=== PATIENT | female | born 1965 | race Hispanic/Latino ===

== ENCOUNTER 2021-02-11 12:08 | Inpatient (IN) | payer BC ==
[~2021-02-11] VITALS: Ht 162.6 cm; Wt 72.7 kg
[2021-02-11 13:12] LABS: BASOPHILS % (AUTO) 0.4 % (0.0-5.0); EOSINOPHILS % (AUTO) 1.8 % (0.0-8.0); HEMATOCRIT 29.8 % (36-48); LYMPHOCYTES % (AUTO) 20.6 % (21.0-51.0); MEAN CORPUSCULAR HEMOGLOBIN 29.7 pg (27.0-33.0); MEAN CORPUSCULAR HGB CONC 31.5 g/dL (32.0-36.0); MONOCYTES % (AUTO) 3.3 % (3.0-13.0); NEUTROPHILS % (AUTO) 73.4 % (40.0-77.0); PLATELET COUNT (AUTO) 351 K/uL (130-400); RED BLOOD CELL COUNT(AUTO) 3.17 MIL/uL (4.00-5.50); RED CELL DISTRIBUTION WIDTH 16.2 % (11.0-15.5); WHITE BLOOD COUNT (AUTO) 10.5 K/uL (4.8-10.8)
[2021-02-11 13:19] LABS: CREATININE 1.6 mg/dL (0.5-1.5); POTASSIUM 4.5 mmol/L (3.5-5.1)
[2021-02-11 13:37] LABS: B-TYPE NATRIURETIC PEPTIDE 1010 pg/mL (0-100)
[2021-02-11] MEDS ORDERED: LACTULOSE 20 GM/30 ML UDCUP PO PRN (14:00)
[2021-02-11] MEDS ORDERED: ACETAMINOPHEN 325 MG TAB PO PRN ×2 (14:00)
[2021-02-11] MEDS ORDERED: ONDANSETRON 4MG INJ IV PRN (14:00)
[2021-02-11] MEDS ORDERED: FUROSEMIDE 40MG VIAL IVP SCH (14:00)
[2021-02-11] MEDS: NITROGLYCERIN 1GM OINT 1 INCH/1GM TD SCH ×2 (14:00→22:00)
[2021-02-11 15:57] LABS: MAGNESIUM 2.1 mg/dL (1.80-2.40); THYROID STIMULATING HORMONE 2.35 uIU/mL (0.36-3.74); TROPONIN I 0.12 ng/mL (0.00-0.06)
[2021-02-11] MEDS ORDERED: BUMETANIDE 2.5MG/10ML VIAL 40 ML IV SCH (18:15)
[2021-02-11] MEDS ORDERED: PHARMACY COMMUNICATION MISC SCH (18:30)
[2021-02-11] MEDS ORDERED: BUMETANIDE 0.25 MG/ML 80 ML IV SCH (18:30)
[2021-02-11] MEDS: INSULIN HUMULIN R 100 UNIT/ML 3ML SQ SCH (21:00)
[2021-02-11] MEDS: FAMOTIDINE 20MG TAB PO SCH (21:00)
[2021-02-11 22:16] LABS: TROPONIN I 0.12 ng/mL (0.00-0.06)
[2021-02-11] MEDS ORDERED: FAMOTIDINE 20MG TAB ONE (22:19)
[2021-02-12] VITALS (7 sets, daily range): BP systolic 117–140; BP diastolic 57–72
[2021-02-12 05:00] LABS: HEMATOCRIT 26.1 % (36-48); MEAN CORPUSCULAR HEMOGLOBIN 29.6 pg (27.0-33.0); MEAN CORPUSCULAR HGB CONC 31.4 g/dL (32.0-36.0); MEAN CORPUSCULAR VOLUME 94.2 fL (79-99); RED BLOOD CELL COUNT(AUTO) 2.77 MIL/uL (4.00-5.50); RED CELL DISTRIBUTION WIDTH 16.4 % (11.0-15.5); RETICULOCYTE % (AUTO) 6.41 % (0.42-2.23); WHITE BLOOD COUNT (AUTO) 8.2 K/uL (4.8-10.8)
[2021-02-12 05:07] LABS: HEMOGLOBIN A1C 6.2 % (4.0-6.0)
[2021-02-12 05:26] LABS: CREATININE 1.5 mg/dL (0.5-1.5); POTASSIUM 4.2 mmol/L (3.5-5.1); THYROID STIMULATING HORMONE 2.31 uIU/mL (0.36-3.74); TROPONIN I 0.13 ng/mL (0.00-0.06)
[2021-02-12] MEDS: INSULIN HUMULIN R 100 UNIT/ML 3ML SQ SCH ×4 (06:21→20:06)
[2021-02-12] MEDS: NITROGLYCERIN 1GM OINT 1 INCH/1GM TD SCH ×3 (06:36→20:08)
[2021-02-12] MEDS ORDERED: METOPROLOL SUCCINATE 50 MG TAB.SR.24H PO SCH (09:00)
[2021-02-12] MEDS: LOSARTAN 50 MG TABLET PO SCH (09:57)
[2021-02-12] MEDS: ENOXAPARIN SODIUM 40 MG/0.4 ML SYRINGE SQ SCH (09:58)
[2021-02-12] MEDS: ASPIRIN 81MG CHEW TAB PO SCH (14:31)
[2021-02-12] MEDS: ATORVASTATIN 20 MG TABLET PO SCH (14:31)
[2021-02-12] MEDS: BUMETANIDE 1MG/4ML VIAL IVP SCH ×2 (14:32→20:07)
[2021-02-12] MEDS: FAMOTIDINE 20MG TAB PO SCH (20:08)
[2021-02-13 04:00] VITALS: BP 116/57
[2021-02-13] MEDS: INSULIN HUMULIN R 100 UNIT/ML 3ML SQ SCH ×4 (05:18→22:38)
[2021-02-13 05:32] LABS: BASOPHILS % (AUTO) 0.1 % (0.0-5.0); EOSINOPHILS % (AUTO) 3.2 % (0.0-8.0); HEMATOCRIT 26.3 % (36-48); LYMPHOCYTES % (AUTO) 21.4 % (21.0-51.0); MEAN CORPUSCULAR HEMOGLOBIN 28.9 pg (27.0-33.0); MEAN CORPUSCULAR HGB CONC 30.8 g/dL (32.0-36.0); MEAN CORPUSCULAR VOLUME 93.9 fL (79-99); MONOCYTES % (AUTO) 6.1 % (3.0-13.0); NEUTROPHILS % (AUTO) 68.8 % (40.0-77.0); PLATELET COUNT (AUTO) 305 K/uL (130-400); RED CELL DISTRIBUTION WIDTH 15.9 % (11.0-15.5); WHITE BLOOD COUNT (AUTO) 8.1 K/uL (4.8-10.8)
[2021-02-13] MEDS: BUMETANIDE 1MG/4ML VIAL IVP SCH (05:39)
[2021-02-13] MEDS: NITROGLYCERIN 1GM OINT 1 INCH/1GM TD SCH (05:43)
[2021-02-13 05:44] LABS: B-TYPE NATRIURETIC PEPTIDE 631 pg/mL (0-100)
[2021-02-13 05:45] LABS: CREATININE 1.7 mg/dL (0.5-1.5); POTASSIUM 3.9 mmol/L (3.5-5.1)
[2021-02-13 08:00] VITALS: BP 111/63
[2021-02-13] MEDS: LOSARTAN 50 MG TABLET PO SCH (10:41)
[2021-02-13] MEDS: ATORVASTATIN 20 MG TABLET PO SCH (10:41)
[2021-02-13] MEDS: BUMETANIDE 1 MG TAB PO SCH ×2 (10:41→22:35)
[2021-02-13] MEDS: ENOXAPARIN SODIUM 40 MG/0.4 ML SYRINGE SQ SCH (10:42)
[2021-02-13] MEDS: ASPIRIN 81MG CHEW TAB PO SCH (10:42)
[2021-02-13] MEDS: ISOSORBIDE MONO 30MG SR TAB PO SCH (10:42)
[2021-02-13] MEDS ORDERED: PHARMACY COMMUNICATION MISC SCH (11:15)
[2021-02-13 12:00] VITALS: BP 116/55
[2021-02-13] MEDS ORDERED: COMPOUND IV MISC 1 EACH IVSOLN MISC PRN (12:45)
[2021-02-13] MEDS: IRON SUCROSE COMPLEX 300 MG in 0.9% NACL 250ML 250 ML IVP SCH (14:00)
[2021-02-13 16:00] VITALS: BP 128/63
[2021-02-13 20:16] VITALS: BP 116/53
[2021-02-13] MEDS: METOPROLOL SUCCINATE 50 MG TAB.SR.24H PO SCH (22:35)
[2021-02-13] MEDS: FAMOTIDINE 20MG TAB PO SCH (22:35)
[2021-02-14] VITALS (7 sets, daily range): BP systolic 126–145; BP diastolic 56–74
[2021-02-14 05:12] LABS: BASOPHILS % (AUTO) 0.3 % (0.0-5.0); EOSINOPHILS % (AUTO) 4.5 % (0.0-8.0); HEMATOCRIT 27.2 % (36-48); LYMPHOCYTES % (AUTO) 22.1 % (21.0-51.0); MEAN CORPUSCULAR HEMOGLOBIN 28.7 pg (27.0-33.0); MEAN CORPUSCULAR HGB CONC 30.5 g/dL (32.0-36.0); MEAN CORPUSCULAR VOLUME 94.1 fL (79-99); MONOCYTES % (AUTO) 7.1 % (3.0-13.0); NEUTROPHILS % (AUTO) 65.6 % (40.0-77.0); PLATELET COUNT (AUTO) 292 K/uL (130-400); RED BLOOD CELL COUNT(AUTO) 2.89 MIL/uL (4.00-5.50); RED CELL DISTRIBUTION WIDTH 15.6 % (11.0-15.5); WHITE BLOOD COUNT (AUTO) 7.1 K/uL (4.8-10.8)
[2021-02-14 05:26] LABS: CREATININE 1.7 mg/dL (0.5-1.5); PHOSPHORUS 4.7 mg/dL (2.5-4.9); POTASSIUM 4.3 mmol/L (3.5-5.1); URIC ACID 10.2 mg/dL (2.6-7.2)
[2021-02-14 05:49] LABS: B-TYPE NATRIURETIC PEPTIDE 897 pg/mL (0-100)
[2021-02-14] MEDS: INSULIN HUMULIN R 100 UNIT/ML 3ML SQ SCH ×4 (05:49→19:56)
[2021-02-14] MEDS: Vitamin B Complex/Vit C/Folic Acid PO SCH (08:51)
[2021-02-14] MEDS: ATORVASTATIN 20 MG TABLET PO SCH (08:51)
[2021-02-14] MEDS: ASPIRIN 81MG CHEW TAB PO SCH (08:56)
[2021-02-14] MEDS: BUMETANIDE 1 MG TAB PO SCH ×2 (08:56→19:55)
[2021-02-14] MEDS: ISOSORBIDE MONO 30MG SR TAB PO SCH (08:56)
[2021-02-14] MEDS: LOSARTAN 50 MG TABLET PO SCH (08:59)
[2021-02-14] MEDS: ENOXAPARIN SODIUM 40 MG/0.4 ML SYRINGE SQ SCH (09:00)
[2021-02-14] MEDS: IRON SUCROSE COMPLEX 300 MG in 0.9% NACL 250ML 250 ML IVP SCH (09:01)
[2021-02-14] MEDS: FAMOTIDINE 20MG TAB PO SCH (19:55)
[2021-02-14] MEDS: METOPROLOL SUCCINATE 50 MG TAB.SR.24H PO SCH (19:58)
[2021-02-15 03:00] VITALS: BP 130/67
[2021-02-15 05:26] LABS: BASOPHILS % (AUTO) 0.3 % (0.0-5.0); EOSINOPHILS % (AUTO) 4.6 % (0.0-8.0); HEMATOCRIT 28.4 % (36-48); LYMPHOCYTES % (AUTO) 22.3 % (21.0-51.0); MEAN CORPUSCULAR HEMOGLOBIN 29.7 pg (27.0-33.0); MEAN CORPUSCULAR HGB CONC 31.3 g/dL (32.0-36.0); MEAN CORPUSCULAR VOLUME 94.7 fL (79-99); MONOCYTES % (AUTO) 6.2 % (3.0-13.0); NEUTROPHILS % (AUTO) 66.3 % (40.0-77.0); PLATELET COUNT (AUTO) 287 K/uL (130-400); RED CELL DISTRIBUTION WIDTH 15.8 % (11.0-15.5)
[2021-02-15] MEDS: INSULIN HUMULIN R 100 UNIT/ML 3ML SQ SCH ×4 (05:26→21:00)
[2021-02-15 05:35] LABS: CREATININE 1.6 mg/dL (0.5-1.5); POTASSIUM 4.2 mmol/L (3.5-5.1)
[2021-02-15 08:00] VITALS: BP 144/84
[2021-02-15] MEDS: LOSARTAN 50 MG TABLET PO SCH (08:34)
[2021-02-15] MEDS: BUMETANIDE 1 MG TAB PO SCH ×2 (08:34→20:04)
[2021-02-15] MEDS: ISOSORBIDE MONO 30MG SR TAB PO SCH (08:34)
[2021-02-15] MEDS: ATORVASTATIN 20 MG TABLET PO SCH (08:34)
[2021-02-15] MEDS: Vitamin B Complex/Vit C/Folic Acid PO SCH (08:35)
[2021-02-15] MEDS: ASPIRIN 81MG CHEW TAB PO SCH (08:35)
[2021-02-15] MEDS: ENOXAPARIN SODIUM 40 MG/0.4 ML SYRINGE SQ SCH (08:35)
[2021-02-15] MEDS: IRON SUCROSE COMPLEX 300 MG in 0.9% NACL 250ML 250 ML IVP SCH (08:36)
[2021-02-15 12:00] VITALS: BP 120/58
[2021-02-15 16:00] VITALS: BP_SYST 131; BP_SYST 134; BP_DIAS 61; BP_DIAS 65
[2021-02-15] MEDS: FAMOTIDINE 20MG TAB PO SCH (20:04)
[2021-02-15] MEDS: METOPROLOL SUCCINATE 50 MG TAB.SR.24H PO SCH (20:04)
[2021-02-15 21:26] VITALS: BP 117/71
[2021-02-16] VITALS (7 sets, daily range): BP systolic 107–128; BP diastolic 53–66
[2021-02-16 04:52] LABS: BASOPHILS % (AUTO) 0.2 % (0.0-5.0); EOSINOPHILS % (AUTO) 2.8 % (0.0-8.0); HEMATOCRIT 28.8 % (36-48); LYMPHOCYTES % (AUTO) 18.1 % (21.0-51.0); MEAN CORPUSCULAR HEMOGLOBIN 28.5 pg (27.0-33.0); MEAN CORPUSCULAR HGB CONC 29.5 g/dL (32.0-36.0); MEAN CORPUSCULAR VOLUME 96.6 fL (79-99); MONOCYTES % (AUTO) 4.9 % (3.0-13.0); NEUTROPHILS % (AUTO) 73.5 % (40.0-77.0); PLATELET COUNT (AUTO) 291 K/uL (130-400); RED BLOOD CELL COUNT(AUTO) 2.98 MIL/uL (4.00-5.50); RED CELL DISTRIBUTION WIDTH 15.7 % (11.0-15.5); WHITE BLOOD COUNT (AUTO) 9.4 K/uL (4.8-10.8)
[2021-02-16 05:04] LABS: INR 1.06 (0.85-1.15)
[2021-02-16 05:29] LABS: CREATININE 1.8 mg/dL (0.5-1.5); POTASSIUM 4.3 mmol/L (3.5-5.1)
[2021-02-16] MEDS: INSULIN HUMULIN R 100 UNIT/ML 3ML SQ SCH ×3 (07:16→18:07)
[2021-02-16] MEDS: ATORVASTATIN 20 MG TABLET PO SCH (08:59)
[2021-02-16] MEDS: LOSARTAN 50 MG TABLET PO SCH (09:01)
[2021-02-16] MEDS: Vitamin B Complex/Vit C/Folic Acid PO SCH (09:02)
[2021-02-16] MEDS: ISOSORBIDE MONO 30MG SR TAB PO SCH (09:02)
[2021-02-16] MEDS: BUMETANIDE 1 MG TAB PO SCH ×2 (09:02→21:05)
[2021-02-16] MEDS: ASPIRIN 81MG CHEW TAB PO SCH (09:03)
[2021-02-16] MEDS: ENOXAPARIN SODIUM 40 MG/0.4 ML SYRINGE SQ SCH (11:10)
[2021-02-16] MEDS: METOPROLOL SUCCINATE 50 MG TAB.SR.24H PO SCH (21:05)
[2021-02-16] MEDS: FAMOTIDINE 20MG TAB PO SCH (21:05)
[2021-02-17 03:55] VITALS: BP 123/73
[2021-02-17 04:58] LABS: INR 1.06 (0.85-1.15); POTASSIUM 4.2 mmol/L (3.5-5.1)
[2021-02-17] MEDS: INSULIN HUMULIN R 100 UNIT/ML 3ML SQ SCH ×4 (06:34→21:03)
[2021-02-17 08:00] VITALS: BP 109/68
[2021-02-17] MEDS: Vitamin B Complex/Vit C/Folic Acid PO SCH (09:06)
[2021-02-17] MEDS: ISOSORBIDE MONO 30MG SR TAB PO SCH (09:06)
[2021-02-17] MEDS: ASPIRIN 81MG CHEW TAB PO SCH (09:06)
[2021-02-17] MEDS: ATORVASTATIN 20 MG TABLET PO SCH (09:07)
[2021-02-17] MEDS: LOSARTAN 50 MG TABLET PO SCH (11:40)
[2021-02-17 12:00] VITALS: BP 104/57
[2021-02-17 16:00] VITALS: BP 117/64
[2021-02-17] MEDS: ENOXAPARIN SODIUM 40 MG/0.4 ML SYRINGE SQ SCH (17:30)
[2021-02-17 19:13] VITALS: BP 117/60
[2021-02-17] MEDS: FAMOTIDINE 20MG TAB PO SCH (21:02)
[2021-02-17] MEDS: METOPROLOL SUCCINATE 50 MG TAB.SR.24H PO SCH (21:02)
[2021-02-17 23:06] VITALS: BP 121/67
[2021-02-18 03:41] VITALS: BP 120/66
[2021-02-18 04:05] LABS: BASOPHILS % (AUTO) 0.3 % (0.0-5.0); EOSINOPHILS % (AUTO) 3.1 % (0.0-8.0); HEMATOCRIT 26.8 % (36-48); LYMPHOCYTES % (AUTO) 25.7 % (21.0-51.0); MEAN CORPUSCULAR HEMOGLOBIN 28.9 pg (27.0-33.0); MEAN CORPUSCULAR HGB CONC 30.2 g/dL (32.0-36.0); MEAN CORPUSCULAR VOLUME 95.7 fL (79-99); MONOCYTES % (AUTO) 4.3 % (3.0-13.0); NEUTROPHILS % (AUTO) 66.3 % (40.0-77.0); NUCLEATED RED BLOOD CELLS 0.2 % (0.0-0.19); PLATELET COUNT (AUTO) 248 K/uL (130-400); RED CELL DISTRIBUTION WIDTH 15.7 % (11.0-15.5); WHITE BLOOD COUNT (AUTO) 8.9 K/uL (4.8-10.8)
[2021-02-18 04:17] LABS: CREATININE 1.9 mg/dL (0.5-1.5); POTASSIUM 4.1 mmol/L (3.5-5.1)
[2021-02-18] MEDS: INSULIN HUMULIN R 100 UNIT/ML 3ML SQ SCH ×4 (05:37→20:35)
[2021-02-18 08:00] VITALS: BP 120/93
[2021-02-18 11:17] VITALS: BP 130/65
[2021-02-18] MEDS: ATORVASTATIN 20 MG TABLET PO SCH (11:22)
[2021-02-18] MEDS: ENOXAPARIN SODIUM 40 MG/0.4 ML SYRINGE SQ SCH (11:22)
[2021-02-18] MEDS: Vitamin B Complex/Vit C/Folic Acid PO SCH (11:23)
[2021-02-18] MEDS: ISOSORBIDE MONO 30MG SR TAB PO SCH (11:23)
[2021-02-18] MEDS: ASPIRIN 81MG CHEW TAB PO SCH (11:23)
[2021-02-18 16:04] VITALS: BP 120/64
[2021-02-18] MEDS ORDERED: 0.9% NACL 500ML IV.SOLN 500 ML IV SCH (18:45)
[2021-02-18 19:50] VITALS: BP 140/61
[2021-02-18] MEDS: FAMOTIDINE 20MG TAB PO SCH (20:33)
[2021-02-18] MEDS: METOPROLOL SUCCINATE 50 MG TAB.SR.24H PO SCH (20:33)
[2021-02-18 23:58] VITALS: BP 148/68
[2021-02-19] VITALS (12 sets, daily range): BP systolic 122–144; BP diastolic 58–85
[2021-02-19 04:38] LABS: BASOPHILS % (AUTO) 0.4 % (0.0-5.0); EOSINOPHILS % (AUTO) 2.8 % (0.0-8.0); HEMATOCRIT 27.2 % (36-48); LYMPHOCYTES % (AUTO) 17.1 % (21.0-51.0); MEAN CORPUSCULAR HEMOGLOBIN 29.2 pg (27.0-33.0); MEAN CORPUSCULAR HGB CONC 31.3 g/dL (32.0-36.0); MEAN CORPUSCULAR VOLUME 93.5 fL (79-99); NEUTROPHILS % (AUTO) 75.5 % (40.0-77.0); PLATELET COUNT (AUTO) 262 K/uL (130-400); RED BLOOD CELL COUNT(AUTO) 2.91 MIL/uL (4.00-5.50); RED CELL DISTRIBUTION WIDTH 15.5 % (11.0-15.5); WHITE BLOOD COUNT (AUTO) 8.9 K/uL (4.8-10.8)
[2021-02-19 04:45] LABS: INR 1.03 (0.85-1.15); PROTHROMBIN TIME 11.2 SEC (9.6-11.6)
[2021-02-19 04:46] LABS: PARTIAL THROMBOPLASTIN TIME 24.7 SEC (26.3-35.5)
[2021-02-19 04:58] LABS: B-TYPE NATRIURETIC PEPTIDE 1180 pg/mL (0-100)
[2021-02-19 05:01] LABS: ALBUMIN 2.9 g/dL (3.5-5.0); BILIRUBIN,TOTAL 0.5 mg/dL (0.2-1.0); CREATININE 1.6 mg/dL (0.5-1.5); POTASSIUM 4.1 mmol/L (3.5-5.1); TOTAL PROTEIN, SERUM 7.5 g/dL (6.0-8.3); TROPONIN I 0.08 ng/mL (0.00-0.06)
[2021-02-19] MEDS: INSULIN HUMULIN R 100 UNIT/ML 3ML SQ SCH ×4 (05:54→21:41)
[2021-02-19] MEDS ORDERED: FENTANYL CITRATE PF 50 MCG/1 ML 2ML VIAL ONE (07:06)
[2021-02-19] MEDS ORDERED: NITROGLYCERIN 2 MG VIAL IV ONE (07:06)
[2021-02-19] MEDS ORDERED: IOHEXOL-350 50ML VIAL IV ONE (07:06)
[2021-02-19] MEDS ORDERED: MIDAZOLAM HCL 1 MG/ML 2ML VIAL ONE (07:06)
[2021-02-19] MEDS ORDERED: IOHEXOL-350 75 ML VIAL IV ONE (07:06)
[2021-02-19] MEDS ORDERED: HEPARIN 10,000 UNIT/10ML (1,000 UNIT/ML) VIAL ONE (07:06)
[2021-02-19] MEDS ORDERED: LIDOCAINE HCL 400MG/20ML VIAL ONE (07:07)
[2021-02-19] MEDS: BUMETANIDE 1MG/4ML VIAL IVP SCH ×2 (12:28→21:33)
[2021-02-19] MEDS: ISOSORBIDE MONO 30MG SR TAB PO SCH (12:28)
[2021-02-19] MEDS: Vitamin B Complex/Vit C/Folic Acid PO SCH (12:28)
[2021-02-19] MEDS: ASPIRIN 81MG CHEW TAB PO SCH (12:28)
[2021-02-19] MEDS: ENOXAPARIN SODIUM 40 MG/0.4 ML SYRINGE SQ SCH (12:29)
[2021-02-19 14:07] LABS: HEMATOCRIT 28.9 % (36-48); MEAN CORPUSCULAR HEMOGLOBIN 29.9 pg (27.0-33.0); MEAN CORPUSCULAR HGB CONC 31.5 g/dL (32.0-36.0); MEAN CORPUSCULAR VOLUME 95.1 fL (79-99); PLATELET COUNT (AUTO) 280 K/uL (130-400); RED BLOOD CELL COUNT(AUTO) 3.04 MIL/uL (4.00-5.50); RED CELL DISTRIBUTION WIDTH 16.1 % (11.0-15.5)
[2021-02-19 14:21] LABS: INR 1.05 (0.85-1.15); PROTHROMBIN TIME 11.4 SEC (9.6-11.6)
[2021-02-19 14:22] LABS: PARTIAL THROMBOPLASTIN TIME 26.8 SEC (26.3-35.5)
[2021-02-19 14:37] LABS: BILIRUBIN,TOTAL 0.4 mg/dL (0.2-1.0); CREATININE 1.7 mg/dL (0.5-1.5); POTASSIUM 4.1 mmol/L (3.5-5.1); THYROID STIMULATING HORMONE 2.54 uIU/mL (0.36-3.74); TOTAL PROTEIN, SERUM 7.3 g/dL (6.0-8.3)
[2021-02-19 14:43] LABS: HEMOGLOBIN A1C 6.2 % (4.0-6.0)
[2021-02-19 14:44] LABS: BAND NEUTROPHILS % (MANUAL) 1 % (0-2); EOSINOPHILS % (MANUAL) 1 % (1-6); LYMPHOCYTES % (MANUAL) 13 % (22-44); MONOCYTES % (MANUAL) 3 % (2-9); SEGMENTED NEUTROPHILS % 82 % (40-70)
[2021-02-19 14:45] LABS: MAN.DIFF COMMENT-IMPRESSION MANUAL DIFFERENTIAL; PLATELET MORPHOLOGY COMMENT ADEQUATE
[2021-02-19] MEDS: ATORVASTATIN 20 MG TABLET PO SCH (21:33)
[2021-02-19] MEDS: FAMOTIDINE 20MG TAB PO SCH (21:33)
[2021-02-19] MEDS: METOPROLOL SUCCINATE 50 MG TAB.SR.24H PO SCH (21:33)
[2021-02-20] VITALS (40 sets, daily range): BP systolic 94–137; BP diastolic 42–71
[2021-02-20 04:59] LABS: BASOPHILS % (AUTO) 0.4 % (0.0-5.0); EOSINOPHILS % (AUTO) 3.2 % (0.0-8.0); HEMATOCRIT 25.2 % (36-48); LYMPHOCYTES % (AUTO) 22.5 % (21.0-51.0); MEAN CORPUSCULAR HEMOGLOBIN 28.9 pg (27.0-33.0); MEAN CORPUSCULAR HGB CONC 30.6 g/dL (32.0-36.0); MEAN CORPUSCULAR VOLUME 94.7 fL (79-99); MONOCYTES % (AUTO) 4.8 % (3.0-13.0); NEUTROPHILS % (AUTO) 68.6 % (40.0-77.0); PLATELET COUNT (AUTO) 256 K/uL (130-400); RED BLOOD CELL COUNT(AUTO) 2.66 MIL/uL (4.00-5.50); RED CELL DISTRIBUTION WIDTH 15.9 % (11.0-15.5); WHITE BLOOD COUNT (AUTO) 7.9 K/uL (4.8-10.8)
[2021-02-20 05:08] LABS: CREATININE 1.6 mg/dL (0.5-1.5)
[2021-02-20] MEDS ORDERED: CEFUROXIME SODIUM 1.5 GM VIAL IVP PRN (06:00)
[2021-02-20] MEDS ORDERED: AMINOCAPROIC ACID 5,000MG VIAL 15,000 MG in 0.9% NACL 500ML IV.SOLN 420 ML IV PRN (06:15)
[2021-02-20] MEDS ORDERED: EPINEPHRINE PF 1MG AMP 10 MG in 0.9% NACL 250ML 240 ML IV PRN (06:15)
[2021-02-20] MEDS ORDERED: NOREPINEPHRINE BITARTRATE 8 MG in DEXTROSE 5%-WATER 250 ML IV PRN (06:15)
[2021-02-20] MEDS: INSULIN HUMULIN R 100 UNIT/ML 3ML SQ SCH ×4 (06:26→20:43)
[2021-02-20] MEDS ORDERED: 0.9%NACL 1000ML 1,000 ML IV ONE (06:41)
[2021-02-20] MEDS ORDERED: HEPARIN 10,000 UNIT/10ML (1,000 UNIT/ML) VIAL ONE ×2 (06:42→07:08)
[2021-02-20] MEDS ORDERED: PAPAVERINE HCL 30 MG/ML 2ML VIAL ONE (06:42)
[2021-02-20] MEDS ORDERED: NITROGLYCERIN 50MG/D5W 250ML 1 BOT ONE (06:45)
[2021-02-20] MEDS ORDERED: DELNIDO FORMULA 2 BAG IV ONE (06:57)
[2021-02-20] MEDS ORDERED: EPINEPHRINE PF 1MG AMP ONE (07:08)
[2021-02-20] MEDS ORDERED: SODIUM BICARB 50MEQ 50ML VIAL 100 ML ONE (07:08)
[2021-02-20] MEDS ORDERED: ESMOLOL HCL 10 MG/ML 10 ML VIAL ONE (07:08)
[2021-02-20] MEDS ORDERED: NOREPINEPHRINE BITARTRATE 1 MG/1 ML ML IV ONE ×2 (07:08→08:41)
[2021-02-20] MEDS ORDERED: LIDOCAINE PF 100MG/5ML (2%) SYRINGE 5ML ONE (07:08)
[2021-02-20] MEDS ORDERED: AMINOCAPROIC ACID 5,000MG VIAL ONE (07:08)
[2021-02-20] MEDS ORDERED: FENTANYL CITRATE PF 50 MCG/1 ML 20ML VIAL IJ ONE (07:09)
[2021-02-20] MEDS ORDERED: PROPOFOL 10 MG/ML 20ML VIAL IV ONE (07:09)
[2021-02-20] MEDS ORDERED: ROCURONIUM 10MG/1ML SYR 10 MG/ML ML ONE (07:09)
[2021-02-20] MEDS ORDERED: MIDAZOLAM HCL 1 MG/ML 2ML VIAL ONE (07:09)
[2021-02-20] MEDS ORDERED: KETAMINE 50MG/ML SYRINGE 50 MG/ML DISP.SYRIN IV ONE (07:10)
[2021-02-20 08:16] LABS: ABG BASE EXCESS 1.3 mmol/L (-2.0-3.0); ABG HCO3 25.7 mmol/L (21.0-28.0); ABG OXYGEN SATURATION 99.4 % (95.0-99.0); ABG PCO2 40 mmHg (32-45)
[2021-02-20] MEDS: BUMETANIDE 1MG/4ML VIAL IVP SCH ×2 (09:00→20:44)
[2021-02-20] MEDS: ASPIRIN 81MG CHEW TAB PO SCH (09:00)
[2021-02-20] MEDS: Vitamin B Complex/Vit C/Folic Acid PO SCH (09:00)
[2021-02-20] MEDS: ISOSORBIDE MONO 30MG SR TAB PO SCH (09:00)
[2021-02-20 09:33] LABS: ABG BASE EXCESS 1.3 mmol/L (-2.0-3.0); ABG HCO3 25.3 mmol/L (21.0-28.0); ABG OXYGEN SATURATION 98.9 % (95.0-99.0); ABG PCO2 37 mmHg (32-45)
[2021-02-20] MEDS ORDERED: AMIODARONE 150MG VIAL ONE (09:55)
[2021-02-20] MEDS ORDERED: PROTAMINE SULFATE 10 MG/ML 25ML VIAL IV ONE (09:55)
[2021-02-20 10:06] LABS: ABG BASE EXCESS -1.4 mmol/L (-2.0-3.0); ABG HCO3 21.9 mmol/L (21.0-28.0); ABG OXYGEN SATURATION 98.8 % (95.0-99.0); ABG PCO2 31 mmHg (32-45)
[2021-02-20] MEDS ORDERED: THROMBIN-JMI 5000 UNIT/VIAL TP ONE (10:12)
[2021-02-20] MEDS ORDERED: THROMBIN-JMI 20000 UNIT KIT TP ONE (10:16)
[2021-02-20 10:44] LABS: ABG BASE EXCESS 0.4 mmol/L (-2.0-3.0); ABG HCO3 24.3 mmol/L (21.0-28.0); ABG OXYGEN SATURATION 98.8 % (95.0-99.0); ABG PCO2 36 mmHg (32-45)
[2021-02-20] MEDS ORDERED: GLYCOPYRROLATE 1 MG/5 ML SYRINGE ONE (11:02)
[2021-02-20 11:47] LABS: ABG BASE EXCESS -4.6 mmol/L (-2.0-3.0); ABG HCO3 19.7 mmol/L (21.0-28.0); ABG PCO2 34 mmHg (32-45)
[2021-02-20] MEDS ORDERED: HYDROCODONE/ACETAMINOPHEN 7.5/325 MG TAB PO PRN ×2 (12:15)
[2021-02-20] MEDS ORDERED: MORPHINE 4 MG SYG IM PRN (12:15)
[2021-02-20] MEDS ORDERED: MORPHINE 2 MG SYG IVP PRN (12:15)
[2021-02-20] MEDS ORDERED: KETOROLAC 15MG/ML VIAL (15MG/ML) IV PRN (12:30)
[2021-02-20] MEDS ORDERED: KETOROLAC 30MG VIAL (30MG/ML) IV PRN (12:30)
[2021-02-20] MEDS: CEFAZOLIN SODIUM 1 GM VIAL IVP SCH ×2 (12:30→20:42)
[2021-02-20 12:32] LABS: ABG BASE EXCESS -2.3 mmol/L (-2.0-3.0); ABG HCO3 20.4 mmol/L (21.0-28.0); ABG OXYGEN SATURATION 99.1 % (95.0-99.0); ABG PCO2 29 mmHg (32-45)
[2021-02-20] MEDS ORDERED: MAGNESIUM 2GM PREMIX 50ML 50 ML IV PRN (12:45)
[2021-02-20] MEDS ORDERED: NOREPINEPHRIN 4MG/NS 250ML 250 ML IV PRN (12:45)
[2021-02-20] MEDS ORDERED: INSULIN REGULAR, HUMAN 3ML 100 UNIT in 0.9%NACL 100ML 99 ML IV PRN ×2 (12:45)
[2021-02-20] MEDS ORDERED: POTASSIUM PHOS 15 mMOL+NS250ML 250 ML IV PRN (12:45)
[2021-02-20] MEDS ORDERED: POTASSIUM CHLORIDE 20MEQ/100ML 100 ML IV PRN (13:00)
[2021-02-20] MEDS ORDERED: NITROGLYCERIN 50 MG/D5% WATER 250 ML IV PRN (13:00)
[2021-02-20] MEDS ORDERED: NICARDIPINE HCL 100 MG/NS 100ML IV SCH ×2 (13:00)
[2021-02-20] MEDS ORDERED: SODIUM BICARB 8.4% 50ML SYRINGE IV PRN (13:00)
[2021-02-20] MEDS ORDERED: 0.9%NACL 10ML VIAL IVP PRN (13:00)
[2021-02-20] MEDS ORDERED: PROPOFOL 1000 MG/100 ML 100 ML IV PRN (13:00)
[2021-02-20] MEDS ORDERED: ONDANSETRON 4MG INJ IVP PRN (13:00)
[2021-02-20] MEDS ORDERED: ACETAMINOPHEN 325 MG TAB PO PRN (13:00)
[2021-02-20] MEDS: 0.9%NACL 1000ML 1,000 ML IV SCH (13:00)
[2021-02-20] MEDS ORDERED: POTASSIUM CHLORIDE 20MEQ/10ML 10 MEQ in 0.9%NACL 50ML 50 ML IV PRN (13:00)
[2021-02-20] MEDS ORDERED: ACETAMINOPHEN 650 MG SUPPOSITORY RC PRN (13:00)
[2021-02-20] MEDS ORDERED: AMINOCAPROIC ACID 5,000MG VIAL 15,000 MG in 0.9% NACL 250ML 190 ML IV SCH (13:00)
[2021-02-20] MEDS ORDERED: 0.9%NACL 1000ML 1,000 ML IV SCH (13:00)
[2021-02-20] MEDS ORDERED: CALCIUM GLUC 1GM 1 GM in 0.9%NACL 50ML 50 ML IV PRN (13:00)
[2021-02-20] MEDS ORDERED: 0.9% NACL 500ML IV.SOLN 500 ML IV SCH (13:00)
[2021-02-20] MEDS ORDERED: ALBUMIN (HUMAN) 5% 250 ML IV ONE ×3 (13:50→19:10)
[2021-02-20 13:57] LABS: BASOPHILS % (AUTO) 0.3 % (0.0-5.0); CREATININE 1.6 mg/dL (0.5-1.5); EOSINOPHILS % (AUTO) 0.6 % (0.0-8.0); HEMATOCRIT 33.7 % (36-48); LYMPHOCYTES % (AUTO) 8.8 % (21.0-51.0); MEAN CORPUSCULAR HEMOGLOBIN 30.3 pg (27.0-33.0); MEAN CORPUSCULAR HGB CONC 32.9 g/dL (32.0-36.0); MEAN CORPUSCULAR VOLUME 92.1 fL (79-99); MONOCYTES % (AUTO) 3.2 % (3.0-13.0); NEUTROPHILS % (AUTO) 86.3 % (40.0-77.0); PLATELET COUNT (AUTO) 202 K/uL (130-400); POTASSIUM 5.4 mmol/L (3.5-5.1); RED BLOOD CELL COUNT(AUTO) 3.66 MIL/uL (4.00-5.50); RED CELL DISTRIBUTION WIDTH 15.5 % (11.0-15.5); WHITE BLOOD COUNT (AUTO) 23.4 K/uL (4.8-10.8)
[2021-02-20 13:58] LABS: ALBUMIN 2.2 g/dL (3.5-5.0); BILIRUBIN,TOTAL 1.2 mg/dL (0.2-1.0); MAGNESIUM 2.7 mg/dL (1.80-2.40)
[2021-02-20 13:59] LABS: PARTIAL THROMBOPLASTIN TIME 27.6 SEC (26.3-35.5)
[2021-02-20 14:06] LABS: INR 1.21 (0.85-1.15)
[2021-02-20 16:58] LABS: ABG BASE EXCESS -3.3 mmol/L (-2.0-3.0); ABG HCO3 22.1 mmol/L (21.0-28.0); ABG OXYGEN SATURATION 98.6 % (95.0-99.0); ABG PCO2 41 mmHg (32-45)
[2021-02-20 19:16] LABS: ABG BASE EXCESS -3.9 mmol/L (-2.0-3.0); ABG OXYGEN SATURATION 98.3 % (95.0-99.0); ABG PCO2 44 mmHg (32-45)
[2021-02-20] MEDS ORDERED: NOREPINEPHRIN 8MG/250ML NS PMX 250 ML IV ONE (20:34)
[2021-02-20] MEDS: FAMOTIDINE 20MG TAB PO SCH (20:42)
[2021-02-20] MEDS: ATORVASTATIN 20 MG TABLET PO SCH (20:42)
[2021-02-20] MEDS: METOPROLOL SUCCINATE 50 MG TAB.SR.24H PO SCH (20:43)
[2021-02-20 23:21] LABS: MAGNESIUM 2.9 mg/dL (1.80-2.40); POTASSIUM 4.5 mmol/L (3.5-5.1)
[2021-02-21] VITALS (69 sets, daily range): BP systolic 2–139; BP diastolic 2–88
[2021-02-21] MEDS: CEFAZOLIN SODIUM 1 GM VIAL IVP SCH (03:59)
[2021-02-21] MEDS: MILRINONE-D5W 20 MG/100 ML 100 ML IV SCH (03:59)
[2021-02-21] MEDS: INSULIN HUMULIN R 100 UNIT/ML 3ML SQ SCH ×4 (04:10→20:13)
[2021-02-21 05:29] LABS: BASOPHILS % (AUTO) 0.1 % (0.0-5.0); EOSINOPHILS % (AUTO) 0.3 % (0.0-8.0); HEMATOCRIT 28.1 % (36-48); MEAN CORPUSCULAR HEMOGLOBIN 30.3 pg (27.0-33.0); MEAN CORPUSCULAR HGB CONC 32.4 g/dL (32.0-36.0); MEAN CORPUSCULAR VOLUME 93.7 fL (79-99); MONOCYTES % (AUTO) 7.9 % (3.0-13.0); NEUTROPHILS % (AUTO) 83.2 % (40.0-77.0); PLATELET COUNT (AUTO) 197 K/uL (130-400); RED CELL DISTRIBUTION WIDTH 16.2 % (11.0-15.5); WHITE BLOOD COUNT (AUTO) 20.5 K/uL (4.8-10.8)
[2021-02-21 05:41] LABS: CREATININE 2.9 mg/dL (0.5-1.5); MAGNESIUM 2.9 mg/dL (1.80-2.40); PHOSPHORUS 4.7 mg/dL (2.5-4.9); POTASSIUM 4.7 mmol/L (3.5-5.1)
[2021-02-21] MEDS: Vitamin B Complex/Vit C/Folic Acid PO SCH (10:32)
[2021-02-21] MEDS: PANTOPRAZOLE 40 MG/VIAL IVP SCH (10:32)
[2021-02-21] MEDS: ASPIRIN 81MG CHEW TAB PO SCH (10:32)
[2021-02-21] MEDS: 0.9%NACL 1000ML 1,000 ML IV SCH (13:00)
[2021-02-21 17:22] LABS: APPEARANCE,URINE CLOUDY (CLEAR); BILIRUBIN,URINE NEGATIVE (NEGATIVE); COLOR,URINE YELLOW (YELLOW); GLUCOSE, URINE (UA) NEGATIVE (NEGATIVE); KETONES,URINE 5 mg/dL (NEGATIVE); LEUKOCYTE ESTERASE ,URINE MODERATE (NEGATIVE); NITRATE,URINE NEGATIVE (NEGATIVE); OCCULT BLOOD,URINE LARGE (NEGATIVE); PROTEIN,URINE 100 mg/dL (NEGATIVE); UROBILINOGEN,URINE 0.2 mg/dL (0.2-1.0)
[2021-02-21 17:23] LABS: BASOPHILS % (AUTO) 0.2 % (0.0-5.0); HEMATOCRIT 30.5 % (36-48); LYMPHOCYTES % (AUTO) 7.7 % (21.0-51.0); MEAN CORPUSCULAR HEMOGLOBIN 30.8 pg (27.0-33.0); MEAN CORPUSCULAR HGB CONC 33.4 g/dL (32.0-36.0); MEAN CORPUSCULAR VOLUME 92.1 fL (79-99); MONOCYTES % (AUTO) 8.9 % (3.0-13.0); NEUTROPHILS % (AUTO) 81.6 % (40.0-77.0); PLATELET COUNT (AUTO) 190 K/uL (130-400); RED BLOOD CELL COUNT(AUTO) 3.31 MIL/uL (4.00-5.50); RED CELL DISTRIBUTION WIDTH 17.1 % (11.0-15.5); WHITE BLOOD COUNT (AUTO) 22.6 K/uL (4.8-10.8)
[2021-02-21 17:31] LABS: BACTERIA,URINE Moderate /HPF (None Seen); MUCUS,URINE Rare LPF (None Seen); SQUAMOUS EPITHELIAL CELL,UR 0-2 /HPF (0-2)
[2021-02-21 17:40] LABS: ALBUMIN 2.9 g/dL (3.5-5.0); BILIRUBIN,TOTAL 0.5 mg/dL (0.2-1.0); CREATININE 3.5 mg/dL (0.5-1.5); MAGNESIUM 3.8 mg/dL (1.80-2.40); POTASSIUM 4.8 mmol/L (3.5-5.1); TOTAL PROTEIN, SERUM 6.1 g/dL (6.0-8.3)
[2021-02-21 18:26] LABS: ABG BASE EXCESS -10.2 mmol/L (-2.0-3.0); ABG HCO3 15.7 mmol/L (21.0-28.0); ABG OXYGEN SATURATION 97.1 % (95.0-99.0); ABG PCO2 35 mmHg (32-45)
[2021-02-21 20:03] LABS: ABG BASE EXCESS -7.8 mmol/L (-2.0-3.0); ABG HCO3 17.4 mmol/L (21.0-28.0); ABG OXYGEN SATURATION 96.9 % (95.0-99.0); ABG PCO2 34 mmHg (32-45)
[2021-02-21] MEDS: ATORVASTATIN 20 MG TABLET PO SCH (20:12)
[2021-02-21] MEDS: SODIUM BICARBONATE 650 MG TAB PO SCH (20:12)
[2021-02-21 20:44] LABS: BASOPHILS % (AUTO) 0.1 % (0.0-5.0); HEMATOCRIT 30.2 % (36-48); LYMPHOCYTES % (AUTO) 8.1 % (21.0-51.0); MEAN CORPUSCULAR HEMOGLOBIN 30.2 pg (27.0-33.0); MEAN CORPUSCULAR HGB CONC 33.1 g/dL (32.0-36.0); MEAN CORPUSCULAR VOLUME 91.2 fL (79-99); MONOCYTES % (AUTO) 6.6 % (3.0-13.0); NEUTROPHILS % (AUTO) 84.6 % (40.0-77.0); PLATELET COUNT (AUTO) 203 K/uL (130-400); RED BLOOD CELL COUNT(AUTO) 3.31 MIL/uL (4.00-5.50); RED CELL DISTRIBUTION WIDTH 17.2 % (11.0-15.5); WHITE BLOOD COUNT (AUTO) 23.5 K/uL (4.8-10.8)
[2021-02-21 21:04] LABS: ALBUMIN 2.9 g/dL (3.5-5.0); BILIRUBIN,TOTAL 0.5 mg/dL (0.2-1.0); CREATININE 3.6 mg/dL (0.5-1.5); POTASSIUM 4.5 mmol/L (3.5-5.1); TOTAL PROTEIN, SERUM 6.2 g/dL (6.0-8.3)
[2021-02-21] MEDS ORDERED: AMIODARONE 150MG VIAL 150 MG in DEXTROSE 5%-WATER 100 ML IV SCH (22:15)
[2021-02-21] MEDS ORDERED: AMIODARONE 900MG VIAL 360 MG in DEXTROSE 5%-WATER 200 ML IV SCH (22:15)
[2021-02-21] MEDS ORDERED: AMIODARONE 900MG VIAL 450 MG in DEXTROSE 5%-WATER 250 ML IV SCH (22:15)
[2021-02-21] MEDS ORDERED: AMIODARONE 900MG VIAL IV ONE (22:19)
[2021-02-21] MEDS ORDERED: DEXTROSE 5%-WATER 100 ML IV ONE (22:21)
[2021-02-21] MEDS ORDERED: AMIODARONE 150MG VIAL ONE (22:21)
[2021-02-22] VITALS (87 sets, daily range): BP systolic 74–144; BP diastolic 25–82
[2021-02-22 01:33] LABS: ABG BASE EXCESS -5.7 mmol/L (-2.0-3.0); ABG HCO3 19.4 mmol/L (21.0-28.0); ABG OXYGEN SATURATION 97.9 % (95.0-99.0); ABG PCO2 36 mmHg (32-45)
[2021-02-22] MEDS: SODIUM BICARBONATE 650 MG TAB PO SCH ×3 (03:09→19:34)
[2021-02-22] MEDS: MILRINONE-D5W 20 MG/100 ML 100 ML IV SCH (03:13)
[2021-02-22 03:40] LABS: BASOPHILS % (AUTO) 0.2 % (0.0-5.0); HEMATOCRIT 29.3 % (36-48); LYMPHOCYTES % (AUTO) 9.1 % (21.0-51.0); MEAN CORPUSCULAR HEMOGLOBIN 29.8 pg (27.0-33.0); MEAN CORPUSCULAR HGB CONC 33.1 g/dL (32.0-36.0); MEAN CORPUSCULAR VOLUME 90.2 fL (79-99); MONOCYTES % (AUTO) 7.6 % (3.0-13.0); NEUTROPHILS % (AUTO) 82.5 % (40.0-77.0); PLATELET COUNT (AUTO) 214 K/uL (130-400); RED BLOOD CELL COUNT(AUTO) 3.25 MIL/uL (4.00-5.50)
[2021-02-22 03:56] LABS: CREATININE 3.8 mg/dL (0.5-1.5); MAGNESIUM 2.7 mg/dL (1.80-2.40); PHOSPHORUS 6.4 mg/dL (2.5-4.9); POTASSIUM 4.3 mmol/L (3.5-5.1)
[2021-02-22] MEDS: INSULIN HUMULIN R 100 UNIT/ML 3ML SQ SCH ×4 (07:30→20:47)
[2021-02-22] MEDS ORDERED: FUROSEMIDE 40MG VIAL ONE (08:29)
[2021-02-22] MEDS ORDERED: FUROSEMIDE 100MG VIAL IV SCH (08:30)
[2021-02-22] MEDS ORDERED: PHARMACY COMMUNICATION MISC SCH ×2 (09:30→14:45)
[2021-02-22] MEDS: PANTOPRAZOLE 40 MG/VIAL IVP SCH (09:43)
[2021-02-22] MEDS ORDERED: NOREPINEPHRIN 8MG/250ML NS PMX 250 ML IV PRN (09:45)
[2021-02-22] MEDS ORDERED: HEPARIN 1,000 UNIT VIAL ONE (10:15)
[2021-02-22] MEDS ORDERED: LIDOCAINE HCL 1% MDV 50ML VIAL ONE (10:15)
[2021-02-22] MEDS ORDERED: AMIODARONE 150MG VIAL 150 MG in DEXTROSE 5%-WATER 100 ML IV STA (12:08)
[2021-02-22] MEDS: Vitamin B Complex/Vit C/Folic Acid PO SCH (12:44)
[2021-02-22] MEDS: ASPIRIN 81MG CHEW TAB PO SCH (12:44)
[2021-02-22] MEDS: ENOXAPARIN SODIUM 30 MG/0.3 ML SQ SCH ×2 (12:45→21:00)
[2021-02-22] MEDS: 0.9%NACL 1000ML 1,000 ML IV SCH (13:00)
[2021-02-22] MEDS ORDERED: ALBUMIN (HUMAN) 25% 50 ML IV SCH (14:31)
[2021-02-22] MEDS ORDERED: ALBUMIN (HUMAN) 25% 100 ML IV ONE (14:35)
[2021-02-22] MEDS ORDERED: AMIODARONE 150MG VIAL 150 MG in DEXTROSE 5%-WATER 100 ML IV SCH (14:42)
[2021-02-22 15:35] LABS: HEMATOCRIT 29.4 % (36-48)
[2021-02-22 15:52] LABS: HEMOGLOBIN A1C 5.7 % (4.0-6.0)
[2021-02-22 15:54] LABS: % IRON SATURATION 10.2 % (22-44)
[2021-02-22 16:00] LABS: ALBUMIN 2.9 g/dL (3.5-5.0); CREATININE 4.1 mg/dL (0.5-1.5)
[2021-02-22] MEDS ORDERED: LIDOCAINE HCL-MPF 1% 2ML VIAL IJ PRN (17:00)
[2021-02-22] MEDS ORDERED: 0.9%NACL 1000ML IV PRN (17:00)
[2021-02-22] MEDS ORDERED: ACETAMINOPHEN 325 MG TAB PO PRN (17:00)
[2021-02-22] MEDS ORDERED: 0.9%NACL 1000ML 1,000 ML IV PRN (17:00)
[2021-02-22] MEDS: HEPARIN 5,000 UNIT VIAL IJ PRN (17:03)
[2021-02-22] MEDS ORDERED: AMIODARONE 200 MG TABLET PO ONE (20:19)
[2021-02-22] MEDS: ATORVASTATIN 20 MG TABLET PO SCH (20:24)
[2021-02-22] MEDS: AMIODARONE 200 MG TABLET PO SCH (20:46)
[2021-02-23] VITALS (40 sets, daily range): BP systolic 90–163; BP diastolic 40–71
[2021-02-23] MEDS: SODIUM BICARBONATE 650 MG TAB PO SCH ×3 (03:17→20:36)
[2021-02-23 04:09] LABS: HEMATOCRIT 23.6 % (36-48); MEAN CORPUSCULAR HEMOGLOBIN 30.5 pg (27.0-33.0); MEAN CORPUSCULAR HGB CONC 33.9 g/dL (32.0-36.0); MEAN CORPUSCULAR VOLUME 90.1 fL (79-99); RED BLOOD CELL COUNT(AUTO) 2.62 MIL/uL (4.00-5.50); RED CELL DISTRIBUTION WIDTH 16.3 % (11.0-15.5); WHITE BLOOD COUNT (AUTO) 13.9 K/uL (4.8-10.8)
[2021-02-23 04:26] LABS: CREATININE 2.7 mg/dL (0.5-1.5); PHOSPHORUS 5.1 mg/dL (2.5-4.9); POTASSIUM 3.3 mmol/L (3.5-5.1)
[2021-02-23] MEDS: INSULIN HUMULIN R 100 UNIT/ML 3ML SQ SCH ×4 (08:00→20:26)
[2021-02-23 08:36] LABS: ALBUMIN 2.2 g/dL (3.5-5.0); BILIRUBIN,DIRECT 0.1 mg/dL (0.0-0.3); BILIRUBIN,TOTAL 0.5 mg/dL (0.2-1.0); TOTAL PROTEIN, SERUM 5.3 g/dL (6.0-8.3)
[2021-02-23] MEDS: Vitamin B Complex/Vit C/Folic Acid PO SCH (08:37)
[2021-02-23] MEDS: ENOXAPARIN SODIUM 30 MG/0.3 ML SQ SCH ×2 (08:37→20:38)
[2021-02-23] MEDS: AMIODARONE 200 MG TABLET PO SCH ×2 (08:37→20:36)
[2021-02-23] MEDS: ASPIRIN 81MG CHEW TAB PO SCH (08:38)
[2021-02-23] MEDS: PANTOPRAZOLE 40 MG/VIAL IVP SCH (08:38)
[2021-02-23] MEDS ORDERED: [UNRECOGNIZED DRUG - OTHER] IV SCH (09:00)
[2021-02-23] MEDS: KCL 20 MEQ ERTAB PO SCH ×3 (09:00→20:38)
[2021-02-23] MEDS ORDERED: ENOXAPARIN IV SCH (09:00)
[2021-02-23] MEDS ORDERED: ALBUMIN (HUMAN) 25% 50 ML IV SCH ×2 (10:00→10:30)
[2021-02-23] MEDS: ISOSORBIDE MONO 30MG SR TAB PO SCH (11:56)
[2021-02-23] MEDS ORDERED: POTASSIUM CHLORIDE 10% ELIXIR 20 MEQ/15 ML UDCUP ONE ×2 (12:05→20:33)
[2021-02-23] MEDS: 0.9%NACL 1000ML 1,000 ML IV SCH (13:00)
[2021-02-23] MEDS: HEPARIN 5,000 UNIT VIAL IJ PRN (13:51)
[2021-02-23] MEDS ORDERED: IRON SUCROSE COMPLEX 100 MG in 0.9%NACL 50ML 50 ML IV SCH (14:15)
[2021-02-23] MEDS ORDERED: EPOETIN ALFA-EPBX (ESRD) 10,000 UNIT/ML VIAL SQ SCH (14:15)
[2021-02-23] MEDS: HYDRALAZINE 20MG/ML VIAL IV SCH ×3 (14:23→22:13)
[2021-02-23] MEDS: ATORVASTATIN 20 MG TABLET PO SCH (20:36)
[2021-02-24] VITALS (19 sets, daily range): BP systolic 96–125; BP diastolic 39–62
[2021-02-24] MEDS: SODIUM BICARBONATE 650 MG TAB PO SCH ×3 (03:45→20:13)
[2021-02-24 04:39] LABS: BASOPHILS % (AUTO) 0.2 % (0.0-5.0); EOSINOPHILS % (AUTO) 0.2 % (0.0-8.0); HEMATOCRIT 25.2 % (36-48); LYMPHOCYTES % (AUTO) 15.1 % (21.0-51.0); MEAN CORPUSCULAR HEMOGLOBIN 30.2 pg (27.0-33.0); MEAN CORPUSCULAR HGB CONC 32.9 g/dL (32.0-36.0); MEAN CORPUSCULAR VOLUME 91.6 fL (79-99); MONOCYTES % (AUTO) 7.1 % (3.0-13.0); NEUTROPHILS % (AUTO) 76.7 % (40.0-77.0); NUCLEATED RED BLOOD CELLS 0.3 % (0.0-0.19); PLATELET COUNT (AUTO) 182 K/uL (130-400); RED BLOOD CELL COUNT(AUTO) 2.75 MIL/uL (4.00-5.50); WHITE BLOOD COUNT (AUTO) 11.8 K/uL (4.8-10.8)
[2021-02-24 04:54] LABS: CREATININE 2.3 mg/dL (0.5-1.5); MAGNESIUM 2.3 mg/dL (1.80-2.40); PHOSPHORUS 3.9 mg/dL (2.5-4.9); POTASSIUM 4.6 mmol/L (3.5-5.1)
[2021-02-24] MEDS: HYDRALAZINE 20MG/ML VIAL IV SCH (05:56)
[2021-02-24] MEDS: INSULIN HUMULIN R 100 UNIT/ML 3ML SQ SCH ×4 (07:09→16:54)
[2021-02-24] MEDS ORDERED: IRON150C5 PO (07:21)
[2021-02-24] MEDS ORDERED: METO-408 PO (07:21)
[2021-02-24] MEDS ORDERED: FURO20TA4 PO (07:21)
[2021-02-24] MEDS ORDERED: ISOS30TA92 PO (07:21)
[2021-02-24] MEDS ORDERED: GLYB1TAB32 PO (07:21)
[2021-02-24 08:13] LABS: HEPATITIS Bs ANTIGEN SCREEN P Negative (Negative)
[2021-02-24] MEDS: ISOSORBIDE MONO 30MG SR TAB PO SCH (09:00)
[2021-02-24] MEDS: AMIODARONE 200 MG TABLET PO SCH ×2 (09:00→20:14)
[2021-02-24] MEDS: PANTOPRAZOLE 40 MG TAB DR PO SCH (09:00)
[2021-02-24] MEDS: ASPIRIN 81MG CHEW TAB PO SCH (09:00)
[2021-02-24] MEDS: Vitamin B Complex/Vit C/Folic Acid PO SCH (09:00)
[2021-02-24] MEDS: ENOXAPARIN SODIUM 30 MG/0.3 ML SQ SCH (09:00)
[2021-02-24] MEDS: 0.9%NACL 1000ML 1,000 ML IV SCH (13:00)
[2021-02-24] MEDS ORDERED: HYDRALAZINE HCL 10 MG TABLET ONE ×2 (14:53→20:39)
[2021-02-24] MEDS: HYDRALAZINE HCL 10 MG TABLET PO SCH ×2 (14:59→21:00)
[2021-02-24] MEDS: METFORMIN HCL 500 MG TABLET PO SCH (16:56)
[2021-02-24] MEDS: ATORVASTATIN 20 MG TABLET PO SCH (20:13)
[2021-02-25] VITALS (7 sets, daily range): BP systolic 95–112; BP diastolic 51–69
[2021-02-25] MEDS: SODIUM BICARBONATE 650 MG TAB PO SCH ×2 (03:33→11:53)
[2021-02-25 03:47] LABS: HEMATOCRIT 27.8 % (36-48); MEAN CORPUSCULAR HGB CONC 31.3 g/dL (32.0-36.0); MEAN CORPUSCULAR VOLUME 92.7 fL (79-99); RED CELL DISTRIBUTION WIDTH 15.5 % (11.0-15.5); WHITE BLOOD COUNT (AUTO) 11.1 K/uL (4.8-10.8)
[2021-02-25 03:58] LABS: CREATININE 2.3 mg/dL (0.5-1.5); MAGNESIUM 2.3 mg/dL (1.80-2.40); PHOSPHORUS 3.2 mg/dL (2.5-4.9); POTASSIUM 3.6 mmol/L (3.5-5.1)
[2021-02-25] MEDS ORDERED: HYDRALAZINE HCL 10 MG TABLET ONE ×3 (09:21→20:53)
[2021-02-25] MEDS: PANTOPRAZOLE 40 MG TAB DR PO SCH (09:25)
[2021-02-25] MEDS: ISOSORBIDE MONO 30MG SR TAB PO SCH (09:26)
[2021-02-25] MEDS: ASPIRIN 81MG CHEW TAB PO SCH (09:26)
[2021-02-25] MEDS: HYDRALAZINE HCL 10 MG TABLET PO SCH ×3 (09:26→20:56)
[2021-02-25] MEDS: METFORMIN HCL 500 MG TABLET PO SCH ×2 (09:27→16:35)
[2021-02-25] MEDS: AMIODARONE 200 MG TABLET PO SCH ×2 (09:27→20:56)
[2021-02-25] MEDS: ENOXAPARIN SODIUM 30 MG/0.3 ML SQ SCH (09:29)
[2021-02-25] MEDS: Vitamin B Complex/Vit C/Folic Acid PO SCH (09:31)
[2021-02-25] MEDS: INSULIN HUMULIN R 100 UNIT/ML 3ML SQ SCH ×4 (09:34→20:50)
[2021-02-25] MEDS ORDERED: MANNITOL 25% 50ML VIAL IV ONE (12:35)
[2021-02-25] MEDS ORDERED: ALBUMIN (HUMAN) 25% 50 ML IV ONE (12:35)
[2021-02-25] MEDS ORDERED: AMINOCAPROIC ACID 5,000MG VIAL IV ONE (12:35)
[2021-02-25] MEDS ORDERED: HEPARIN 10,000 UNIT/10ML (1,000 UNIT/ML) VIAL IV ONE (12:35)
[2021-02-25] MEDS ORDERED: CACL 1GM SYG IVP ONE (12:35)
[2021-02-25] MEDS ORDERED: SODIUM BICARB 8.4% 50ML SYRINGE IVP ONE (12:35)
[2021-02-25] MEDS: 0.9%NACL 1000ML 1,000 ML IV SCH (13:00)
[2021-02-25] MEDS: ATORVASTATIN 20 MG TABLET PO SCH (20:55)
[2021-02-26 03:34] LABS: BASOPHILS % (AUTO) 0.1 % (0.0-5.0); EOSINOPHILS % (AUTO) 2.2 % (0.0-8.0); HEMATOCRIT 26.1 % (36-48); LYMPHOCYTES % (AUTO) 13.4 % (21.0-51.0); MEAN CORPUSCULAR HEMOGLOBIN 30.1 pg (27.0-33.0); MEAN CORPUSCULAR HGB CONC 32.2 g/dL (32.0-36.0); MEAN CORPUSCULAR VOLUME 93.5 fL (79-99); MONOCYTES % (AUTO) 6.8 % (3.0-13.0); NEUTROPHILS % (AUTO) 76.9 % (40.0-77.0); PLATELET COUNT (AUTO) 241 K/uL (130-400); RED BLOOD CELL COUNT(AUTO) 2.79 MIL/uL (4.00-5.50); RED CELL DISTRIBUTION WIDTH 15.5 % (11.0-15.5); WHITE BLOOD COUNT (AUTO) 10.7 K/uL (4.8-10.8)
[2021-02-26 03:45] LABS: CREATININE 2.2 mg/dL (0.5-1.5); MAGNESIUM 2.2 mg/dL (1.80-2.40); PHOSPHORUS 2.9 mg/dL (2.5-4.9); POTASSIUM 3.6 mmol/L (3.5-5.1)
[2021-02-26 04:00] VITALS: BP 100/45
[2021-02-26 07:00] VITALS: BP 104/58
[2021-02-26] MEDS: INSULIN HUMULIN R 100 UNIT/ML 3ML SQ SCH ×3 (07:30→16:30)
[2021-02-26] MEDS: ENOXAPARIN SODIUM 30 MG/0.3 ML SQ SCH (08:53)
[2021-02-26] MEDS: METFORMIN HCL 500 MG TABLET PO SCH ×2 (08:56→17:30)
[2021-02-26] MEDS: ASPIRIN 81MG CHEW TAB PO SCH (08:56)
[2021-02-26] MEDS: Vitamin B Complex/Vit C/Folic Acid PO SCH (08:56)
[2021-02-26] MEDS: AMIODARONE 200 MG TABLET PO SCH (08:56)
[2021-02-26] MEDS: ISOSORBIDE MONO 30MG SR TAB PO SCH (08:57)
[2021-02-26] MEDS: PANTOPRAZOLE 40 MG TAB DR PO SCH (08:57)
[2021-02-26] MEDS ORDERED: HYDRALAZINE HCL 10 MG TABLET ONE (08:58)
[2021-02-26] MEDS: HYDRALAZINE HCL 10 MG TABLET PO SCH ×2 (08:58→09:01)
[2021-02-26 11:00] VITALS: BP 107/53
[2021-02-26 15:00] VITALS: BP 115/60
[2021-05-25] MEDS ORDERED: CYCL10TA16 PO (22:32)
== END 2021-02-26 17:40 | DRG 233 ==
LOC: EDH 12:08 → EDHIP 12:09 → 4DH 02-12 01:53 → 2CV 02-20 11:47 → 2CH 02-21 05:34 → 4DH 02-24 16:45
PROVIDERS: ADMIT Internal Medicine; ATTEND Internal Medicine
PROC: 4A023N8 Measurement of Cardiac Sampling and Pressure, Bilateral, Percutaneous Approach (ICD-10-PCS; principal; 2021-02-19)
PROC: B2111ZZ Fluoroscopy of Multiple Coronary Arteries using Low Osmolar Contrast (ICD-10-PCS; 2021-02-19)
PROC: 06BQ4ZZ Excision of Left Saphenous Vein, Percutaneous Endoscopic Approach (ICD-10-PCS; 2021-02-20)
PROC: 3E0 Administration, Physiological Systems and Anatomical Regions, Introduction (ICD-10-PCS; 2021-02-20)
PROC: 5A1221Z Performance of Cardiac Output, Continuous (ICD-10-PCS; 2021-02-20)
PROC: 30233N1 Transfusion of Nonautologous Red Blood Cells into Peripheral Vein, Percutaneous Approach (ICD-10-PCS; 2021-02-20)
PROC: 03LY0ZZ Occlusion of Upper Artery, Open Approach (ICD-10-PCS; 2021-02-20)
PROC: 02100Z9 Bypass Coronary Artery, One Artery from Left Internal Mammary, Open Approach (ICD-10-PCS; 2021-02-20 07:42)
PROC: 021209W Bypass Coronary Artery, Three Arteries from Aorta with Autologous Venous Tissue, Open Approach (ICD-10-PCS; 2021-02-20 07:42)
PROC: 5A1935Z Respiratory Ventilation, Less than 24 Consecutive Hours (ICD-10-PCS; 2021-02-21)
PROC: 0BH17EZ Insertion of Endotracheal Airway into Trachea, Via Natural or Artificial Opening (ICD-10-PCS; 2021-02-21)
PROC: 5A1D70Z Performance of Urinary Filtration, Intermittent, Less than 6 Hours Per Day (ICD-10-PCS; 2021-02-22)
PROC: 02H633Z Insertion of Infusion Device into Right Atrium, Percutaneous Approach (ICD-10-PCS; 2021-02-22)
PROC: B548ZZA Ultrasonography of Superior Vena Cava, Guidance (ICD-10-PCS; 2021-02-22)
PROC: 05HY33Z Insertion of Infusion Device into Upper Vein, Percutaneous Approach (ICD-10-PCS; 2021-02-22)
PROC: 5A1D70Z Performance of Urinary Filtration, Intermittent, Less than 6 Hours Per Day (ICD-10-PCS; 2021-02-23)
DX: I13.0 Hypertensive heart and chronic kidney disease with heart failure and stage 1 through stage 4 chronic kidney disease, or unspecified chronic kidney disease (principal); I50.43 Acute on chronic combined systolic (congestive) and diastolic (congestive) heart failure; J96.01 Acute respiratory failure with hypoxia; N17.9 Acute kidney failure, unspecified; D62 Acute posthemorrhagic anemia; I25.110 Atherosclerotic heart disease of native coronary artery with unstable angina pectoris; N18.30 Chronic kidney disease, stage 3 unspecified; D63.8 Anemia in other chronic diseases classified elsewhere; E11.22 Type 2 diabetes mellitus with diabetic chronic kidney disease; E87.70 Fluid overload, unspecified; E11.51 Type 2 diabetes mellitus with diabetic peripheral angiopathy without gangrene; E78.5 Hyperlipidemia, unspecified; I87.2 Venous insufficiency (chronic) (peripheral); Z20.822 Contact with and (suspected) exposure to COVID-19; Z56.0 Unemployment, unspecified; Z79.84 Long term (current) use of oral hypoglycemic drugs; Z79.82 Long term (current) use of aspirin; Z79.899 Other long term (current) drug therapy; Z87.01 Personal history of pneumonia (recurrent); Z91.14 Patient's other noncompliance with medication regimen; Z95.1 Presence of aortocoronary bypass graft; Z86.16 Personal history of COVID-19; T14.8XXA Other injury of unspecified body region, initial encounter
CPT/HCPCS: 36415; 36556; 71045; 71046; 76770; 80048; 80053; 80061; 80076; 81001; 82040; 82270; 82435; 82550; 82565; 82728; 82803; 82947; 82948; 83036; 83540; 83550; 83605; 83735; 83874; 83880; 83935; 84100; 84132; 84295; 84300; 84439; 84443; 84481; 84484; 84520; 84550; 85014; 85018; 85025; 85027; 85045; 85347; 85384; 85610; 85730; 86701; 86704; 86706; 86850; 86900; 86901; 86923; 87077; 87088; 87186; 87340; 87390; 90935; 93005; 93306; 93356; 93460; 93880; 93970; 94002; 94010; 94667; 97039; 99156; 99157; A7048; C1729; C1752; C1757; C1769; C1894; C9113; G0378; J0171; J0282; J0360; J0690; J0697; J1644; J1650; J1756; J1815; J1940; J2001; J2150; J2250; J2260; J2405; J2440; J2704; J2720; J3010; J3480; J3490; J7030; J7040; J7050; J7060; P9016; P9045; P9046; P9047; Q9967; U0003

== ENCOUNTER 2021-05-25 20:52 | Emergency (ER) | payer BC ==
[~2021-05-25] VITALS: Ht 160 cm; Wt 72.6 kg
[~2021-05-25 20:52] MED LIST: FURO20TA4 PO; GLYB1TAB32 PO; IRON150C5 PO; ISOS30TA92 PO; METO-408 PO
[2021-05-25 20:57] VITALS: BP 173/57
[2021-05-25] MEDS ORDERED: CYCLOBENZAPRINE HCL 10 MG TABLET PO ONE (21:00)
[2021-05-25] MEDS ORDERED: HYDROCODONE/ACETAMINOPHEN 10/325 MG TAB PO ONE (21:00)
[2021-05-25] MEDS ORDERED: KETOROLAC 60 MG VIAL (30MG/ML) IM ONE (21:00)
[2021-05-25] MEDS ORDERED: NAPR-1180 PO (22:32)
[2021-05-25] MEDS ORDERED: CYCL10 PO (22:32)
[2021-05-25 22:50] VITALS: BP 156/59
== END 2021-05-25 22:51 | disposition home or self-care (01) ==
LOC: EDH 21:37
DX: S20.212A Contusion of left front wall of thorax, initial encounter (principal); S30.0XXA Contusion of lower back and pelvis, initial encounter; S70.02XA Contusion of left hip, initial encounter; I10 Essential (primary) hypertension; E78.00 Pure hypercholesterolemia, unspecified; E11.9 Type 2 diabetes mellitus without complications; Z79.1 Long term (current) use of non-steroidal anti-inflammatories (NSAID); Z79.899 Other long term (current) drug therapy; Z79.84 Long term (current) use of oral hypoglycemic drugs; W01.0XXA Fall on same level from slipping, tripping and stumbling without subsequent striking against object, initial encounter; Y93.89 Activity, other specified; Y92.511 Restaurant or cafe as the place of occurrence of the external cause; Y99.8 Other external cause status
CPT/HCPCS: 71250; 74176; 93005; 96372; 99284; J1885

== ENCOUNTER → 2022-05-21 | Outpatient (CLI) | payer BC ==
[~2022-05-21] MED LIST changes: +CYCL10TA16 PO; +NAPR-1180 PO
[2022-05-21 12:49] LABS: ALBUMIN 3.6 g/dL (3.5-5.0); CREATININE 4.6 mg/dL (0.5-1.5); POTASSIUM 3.8 mmol/L (3.5-5.1); TOTAL PROTEIN, SERUM 8.6 g/dL (6.0-8.3)
== END | disposition home or self-care (01) ==
LOC: LAB 10:00
PROVIDERS: ATTEND Internal Medicine Cardiovascular Disease
DX: I48.0 Paroxysmal atrial fibrillation (principal); Z95.1 Presence of aortocoronary bypass graft
CPT/HCPCS: 36415; 80053; 83880

== ENCOUNTER → 2023-03-29 | Outpatient (CLI) | payer BC ==
[~2023-03-29] MED LIST changes: +GLYB-173 PO; -GLYB1TAB32 PO
== END | disposition home or self-care (01) ==
LOC: SHCH 12:06
PROVIDERS: ATTEND Internal Medicine Cardiovascular Disease
DX: Z01.810 Encounter for preprocedural cardiovascular examination (principal); I08.3 Combined rheumatic disorders of mitral, aortic and tricuspid valves; R06.09 Other forms of dyspnea; I11.9 Hypertensive heart disease without heart failure; E11.9 Type 2 diabetes mellitus without complications
CPT/HCPCS: 93306

== ENCOUNTER 2023-08-09 10:15 | Day surgery (SDC) | payer BC ==
[2023-08-04 12:39] VITALS: BP 117/58; PULSE 70; RESP 18
[2023-08-04 12:39] LABS: BASOPHILS # (AUTO) 0.03 K/uL (0.00-0.20); BASOPHILS % (AUTO) 0.2 % (0.0-5.0); EOSINOPHILS % (AUTO) 1.6 % (0.0-8.0); HEMATOCRIT 35.7 % (36-48); IMMATURE GRANULOCYTE ABSOLUTE 0.05 K/uL (0-1); LYMPHOCYTES # (AUTO) 1.3 K/uL (1.0-4.8); LYMPHOCYTES % (AUTO) 10.4 % (21.0-51.0); MEAN CORPUSCULAR HEMOGLOBIN 28.2 pg (27.0-33.0); MEAN CORPUSCULAR HGB CONC 30.5 g/dL (32.0-36.0); MEAN CORPUSCULAR VOLUME 92.5 fL (79-99); MONOCYTES # (AUTO) 0.6 K/uL (0.1-1.0); MONOCYTES % (AUTO) 4.9 % (3.0-13.0); NEUTROPHILS # (AUTO) 10.3 K/uL (1.8-7.7); NEUTROPHILS % (AUTO) 82.5 % (40.0-77.0); PLATELET COUNT (AUTO) 366 K/uL (130-400); RED BLOOD CELL COUNT(AUTO) 3.86 MIL/uL (4.00-5.50); RED CELL DISTRIBUTION WIDTH 17.3 % (11.0-15.5); WHITE BLOOD COUNT (AUTO) 12.5 K/uL (4.8-10.8)
[2023-08-04 12:50] LABS: INR 0.98 (0.85-1.15); PROTHROMBIN TIME 11.4 SEC (9.6-11.6)
[2023-08-04 12:51] LABS: PARTIAL THROMBOPLASTIN TIME 28.8 SEC (26.3-35.5)
[2023-08-04 12:52] LABS: CREATININE 3.6 mg/dL (0.5-1.5); POTASSIUM 3.9 mmol/L (3.5-5.1)
[~2023-08-09] VITALS: Ht 160 cm; Wt 78.5 kg
[~2023-08-09 10:15] MED LIST changes: +AEC81 PO; +AMIO200T68 PO; +ASCO500C18 PO; +ATOR10 PO; +BUME2TAB5 PO; +CARV3.12 PO; +CHOL100020 PO; -CYCL10TA16 PO; +FERR-72 PO; -FURO20TA4 PO; +GLIP5TAB15 PO; -GLYB-173 PO; +HYDR-3420 PO; -IRON150C5 PO; -METO-408 PO; +METO5TAB7 PO; -NAPR-1180 PO; +RIVA2.5T PO
[2023-08-09 10:58] VITALS: BP 160/67; PULSE 68; RESP 16
[2023-08-09] MEDS ORDERED: LIDOCAINE PF 100MG/5ML (2%) SYRINGE 5ML ONE (14:02)
[2023-08-09] MEDS ORDERED: PROPOFOL 10 MG/ML 20ML VIAL IV ONE (14:02)
== END 2023-08-09 15:46 | disposition home or self-care (01) ==
LOC: DAH 10:15 → ENDO 10:15
PROVIDERS: ATTEND Internal Medicine Gastroenterology
DX: D50.9 Iron deficiency anemia, unspecified (principal); R14.0 Abdominal distension (gaseous); K59.00 Constipation, unspecified; K92.1 Melena; R19.7 Diarrhea, unspecified; D12.2 Benign neoplasm of ascending colon; D12.8 Benign neoplasm of rectum; K64.0 First degree hemorrhoids; K29.50 Unspecified chronic gastritis without bleeding; I11.0 Hypertensive heart disease with heart failure; I50.9 Heart failure, unspecified; E11.9 Type 2 diabetes mellitus without complications; E78.5 Hyperlipidemia, unspecified; I25.10 Atherosclerotic heart disease of native coronary artery without angina pectoris; R74.01 Elevation of levels of liver transaminase levels; I25.2 Old myocardial infarction; Z80.0 Family history of malignant neoplasm of digestive organs; Z79.899 Other long term (current) drug therapy; Z79.82 Long term (current) use of aspirin; Z98.890 Other specified postprocedural states; Z86.16 Personal history of COVID-19; Z98.51 Tubal ligation status; Z82.49 Family history of ischemic heart disease and other diseases of the circulatory system; Z83.3 Family history of diabetes mellitus
CPT/HCPCS: 80048; 84703; 85025; 85610; 85730; 36415; 93005; 82948; 88312; 88305; 43239; 45385; J2001; J2704; A4620; A4649; A4215 ×2; A4223; A4657; A7002; A4222; A4221; A4663; A4216; J7030; A4606; J3490